=== PATIENT | female | born 1940 | race Caucasian/White ===

== ENCOUNTER 2021-11-02 05:47 | Day surgery (SDC) | payer MEDICARE, OTHER ==
[~2021-11-02] VITALS: Ht 144.8 cm; Wt 97.8 kg
[~2021-11-02 05:47] MED LIST: ASCO500 PO; ASPI-1450 PO; CALC-1085 PO; CARV6 PO; FAMO20 PO; HYDR25TA2 PO; ISOS10TA16 PO; LISI-893 PO; MONT-35 PO; OMEP20 PO; SODIUM CHLORIDE 0.9% 1,000 ML IV ONE; ZINC50TA71 PO
[2021-11-02] MEDS ORDERED: SODIUM CHLORIDE 0.9% 1,000 ML ONE (06:37)
[2021-11-02 07:00] LABS: COVID AG,FIA SOURCE NASAL SWAB
[2021-11-02] MEDS ORDERED: MIDAZOLAM HCL 5 MG/ML VIAL ONE (07:51)
[2021-11-02] MEDS ORDERED: FentaNYL CITRATE PF 100 MCG/2 ML VIAL ONE (07:51)
[2021-11-02] MEDS ORDERED: SODIUM CHLORIDE 0.9% 10 ML ONE (08:21)
[2021-11-02] MEDS ORDERED: MethylPREDNISolone SOD SUCC 125 MG/2 ML VIAL IVP ONE (09:00)
[2021-11-02] MEDS ORDERED: MethylPREDNISolone SOD SUCC 125 MG/2 ML VIAL ONE (09:04)
[2021-11-02] MEDS ORDERED: LIDOCAINE 2% 11 ML JELLY ONE (12:04)
[2021-11-02] MEDS ORDERED: BENZOCAINE 20% 50 MCG/SPRAY 57 GM ONE (12:04)
[2021-11-02] MEDS ORDERED: ALBUTEROL SULFATE 2.5 MG/0.5 ML NEB SOLUTION NEB ONE (12:04)
[2021-11-02] MEDS ORDERED: LIDOCAINE 4% 50 ML SOLUTION ONE (12:04)
[2021-11-02] MEDS ORDERED: OXYGEN THERAPY IH SCH (20:00)
== END 2021-11-02 12:10 | disposition home or self-care (01) ==
LOC: SURGERY 05:47
PROVIDERS: ATTEND Internal Medicine Critical Care Medicine
DX: J38.4 Edema of larynx (principal); B37.0 Candidal stomatitis; J39.8 Other specified diseases of upper respiratory tract; Z98.890 Other specified postprocedural states; Z90.49 Acquired absence of other specified parts of digestive tract; Z79.899 Other long term (current) drug therapy
CPT/HCPCS: 31623; 88112; 87206; 87101; 87220; 87070; 87015; 88305; 88312; 31624; 71045; 87426; J3010; J2930; J2250; Q9967; J7030; C9803; J7613; Z7610

== ENCOUNTER 2022-10-04 06:45 | Day surgery (SDC) | payer MEDICARE, OTHER ==
[~2022-10-04] VITALS: Ht 147.3 cm; Wt 90.9 kg
[~2022-10-04 06:45] MED LIST changes: -SODIUM CHLORIDE 0.9% 1,000 ML IV ONE
[2022-10-04] MEDS ORDERED: BENZOCAINE 20% 50 MCG/SPRAY 57 GM TP ONE (06:46)
[2022-10-04] MEDS ORDERED: LIDOCAINE 4% 50 ML SOLUTION TP ONE (06:46)
[2022-10-04] MEDS ORDERED: LIDOCAINE 2% 11 ML JELLY TP ONE (06:46)
[2022-10-04] MEDS ORDERED: SODIUM CHLORIDE 0.9% 1,000 ML ONE (07:44)
[2022-10-04] MEDS ORDERED: MIDAZOLAM HCL 2 MG/2 ML VIAL ONE (08:03)
[2022-10-04] MEDS ORDERED: FentaNYL CITRATE PF 100 MCG/2 ML VIAL ONE (08:03)
[2022-10-04] MEDS ORDERED: SODIUM CHLORIDE 0.9% 1,000 ML IV ONE (09:00)
[2022-10-04] MEDS ORDERED: MethylPREDNISolone SOD SUCC 125 MG/2 ML VIAL IVP ONE (09:30)
[2022-10-04 09:37] VITALS: PULSE 68; RESP 17; O2SAT 99
[2022-10-04] MEDS ORDERED: MethylPREDNISolone SOD SUCC 125 MG/2 ML VIAL ONE (10:01)
[2022-10-04] MEDS ORDERED: LEFL10TA19 PO (10:04)
[2022-10-04] MEDS ORDERED: ATOR40TA28 PO (10:04)
[2022-10-04] MEDS ORDERED: ALBU18HF12 IH (10:04)
== END 2022-10-04 11:50 | disposition home or self-care (01) ==
LOC: SURGERY 06:45
PROVIDERS: ATTEND Internal Medicine Critical Care Medicine
DX: J38.4 Edema of larynx (principal); B37.0 Candidal stomatitis; I10 Essential (primary) hypertension; Z98.890 Other specified postprocedural states; D64.9 Anemia, unspecified; Z79.899 Other long term (current) drug therapy
CPT/HCPCS: 31623; 88112; 87206; 87101; 87220; 87070; 31624; 71045; 87015; J3010; J2250; J2930; Q9967; J7030; Z7610

== ENCOUNTER 2024-08-27 07:06 | Day surgery (SDC) | payer MEDICARE, OTHER ==
[~2024-08-27] VITALS: Ht 142.2 cm; Wt 89.0 kg
[~2024-08-27 07:06] MED LIST changes: +ALBU18HF12 IH; +ATOR40TA28 PO; +CARV-165 PO; -CARV6 PO; +LEFL10TA19 PO; +OMEP-148 PO; -OMEP20 PO
[2024-08-27] MEDS: SODIUM CHLORIDE 0.9% 1,000 ML IV ONE (08:32)
[2024-08-27 08:41] LABS: GLUCOMETER DEV NAME(LOC) SDS.; GLUCOSE,POINT OF CARE 102 MG/DL (70-110)
[2024-08-27] MEDS ORDERED: MIDAZOLAM HCL 2 MG/2 ML VIAL ONE (08:46)
[2024-08-27] MEDS ORDERED: FentaNYL CITRATE PF 100 MCG/2 ML VIAL ONE (08:46)
[2024-08-27 09:29] VITALS: PULSE 65; RESP 14; O2SAT 99
[2024-08-27] MEDS ORDERED: MethylPREDNISolone SOD SUCC 125 MG/2 ML VIAL ONE (09:57)
[2024-08-27] MEDS ORDERED: MethylPREDNISolone SOD SUCC 40 MG/ML VIAL ONE (09:57)
[2024-08-27] MEDS: MethylPREDNISolone SOD SUCC 125 MG/2 ML VIAL IVP ONE (09:59)
[2024-08-27] MEDS ORDERED: CHOL500050 PO (10:35)
[2024-08-27] MEDS ORDERED: CYAN-119 PO (10:35)
[2024-08-27] MEDS ORDERED: CLOP75TA83 PO (10:35)
[2024-08-27] MEDS ORDERED: SACU1TAB PO (10:35)
== END 2024-08-27 14:25 | disposition home or self-care (01) ==
LOC: SURGERY 07:06
PROVIDERS: ATTEND Internal Medicine Critical Care Medicine
DX: R05.3 Chronic cough (principal); J38.4 Edema of larynx; B37.0 Candidal stomatitis; E78.00 Pure hypercholesterolemia, unspecified; E11.9 Type 2 diabetes mellitus without complications; Z90.49 Acquired absence of other specified parts of digestive tract; Z98.890 Other specified postprocedural states; I10 Essential (primary) hypertension; Z95.5 Presence of coronary angioplasty implant and graft
CPT/HCPCS: 31623; 82962; 87206; 87101; 87220; 87070; 88108; 31624; 94640; 71045; 87015; J3010; J2250; J2919 ×2